=== PATIENT | female | born 1975 | race African-American/Black ===

== ENCOUNTER 2017-04-11 16:45 | Emergency (ER) | payer OTHER ==
[~2017-04-11] VITALS: Ht 152.4 cm; Wt 78.5 kg
[~2017-04-11 16:45] MED LIST: BEE550CA PO; LISI-334 PO; OMEG300C PO
[2017-04-11 17:00] VITALS: BP 127/80
[2017-04-11] MEDS ORDERED: ACETAMINOPHEN 325 MG TABLET PO ONE (18:30)
--- NOTE | 2017-04-11 18:37 | PHYS DOC ---
Past History Past Medical History: Hypertension Past Surgical History: Alcohol Use: None Drug Use: None Adult General Chief Complaint Chief Complaint: HEADACHE HPI HPI Patient is a 41 yo female with a hx of htn and presents with headache today that began at work about 5 hours prior to arrival. she denies worst of life or sudden onset. she tried to sleep and when she woke she was anxious with tingling to her hands, face and lips. those symptoms have resovled. pain is described as throbbing, not described as sharp or stabbing. no radiation. there is nausea without vomiting, photophobia without change in vision. no trauma, travel, or recent antibiotics. no focal neurological deficits. at bedside was worried about MS as the cause of her symptoms. we discussed that there was no need for CT scan given symptoms and her pe. no FMhx is known as patient is adopted. throbbing pain bitemporally is about a 6 of ten. no OTC meds were used. Review of Systems Review of Systems Constitutional: Denies fever or chills [] Eyes: Denies change in visual acuity, redness, or eye pain [] HENT: Denies nasal congestion or sore throat [] Respiratory: Denies cough or shortness of breath [] Cardiovascular: No additional information not addressed in HPI [] GI: Denies abdominal pain, nausea, vomiting, bloody stools or diarrhea [] : Denies dysuria or hematuria [] Musculoskeletal: Denies back pain or joint pain [] Integument: Denies rash or skin lesions [] Neurologic: presents with headache without, focal weakness or there has been some tingling and numbness to hands and face that have now resolved Endocrine: Denies polyuria or polydipsia [] Allergies Allergies Allergies Coded Allergies Type Severity Reaction Last Updated Verified No Known Drug Allergies 10/28/14 No Physical Exam Physical Exam noted htn Constitutional: Well developed, well nourished, no acute distress, non-toxic appearance. [] HENT: Normocephalic, atraumatic, bilateral external ears normal, oropharynx moist, no oral exudates, nose normal. [] Eyes: PERRLA, EOMI, conjunctiva normal, no discharge. [] Neck: Normal range of motion, no tenderness, supple, no stridor. [] Cardiovascular:Heart rate regular rhythm, no murmur [] Lungs & Thorax: Bilateral breath sounds clear to auscultation [] Abdomen: Bowel sounds normal, soft, no tenderness, no masses, no pulsatile masses. [] Skin: Warm, dry, no erythema, no rash. [] Back: No tenderness, no CVA tenderness. [] Extremities: No tenderness, no cyanosis, no clubbing, ROM intact, no edema. [] Neurologic: Alert and oriented X 3, normal motor function, normal sensory function, no focal deficits noted. [] Psychologic: Affect normal, judgement normal, mood normal. [] Current Patient Data Vital Signs Vital Signs Date Time Temp Pulse Resp B/P (MAP) Pulse Ox O2 Delivery O2 Flow Rate FiO2 04/11/17 17:00 99.0 64 18 100 Room Air EKG EKG [] Radiology/Procedures Radiology/Procedures [] Course & Med Decision Making Course & Med Decision Making Pertinent Labs and Imaging studies reviewed. (See chart for details) reviewed nurse's notes, vital signs, physical exam and history findings. Patient tells me that their symptoms given during CC are improved. We discussed differential diagnosis and need to follow-up. Also discussed that he cannot have a CAT scan at this time given duration of symptoms type of systems in severity I believe the CT scan would be an inappropriate tested at this time. I believe neurology follow-up. As an outpatient for continued evaluation for possible MS that's what they're worried about in the future. Impression; Tension headache subjective paresthesias now resolved Disposition: PCP follow-up in 24-48 hours if symptoms continue return really for any increase or change symptoms with any weakness or change paresthesias or change in vision or activity question concerns. Would advise up with her PCP for neurology evaluation if symptoms are persistent. [] Dragon Disclaimer Dragon Disclaimer This chart was dictated in whole or in part using Voice Recognition software in a busy, high-work load, and often noisy Emergency Department environment. It may contain unintended and wholly unrecognized errors or omissions. Departure Departure: Impression: Primary Impression: Tension headache Additional Impression: Paresthesias Disposition: HOME, SELF-CARE Condition: IMPROVED Referrals: KASEY DELGADO APRN (PCP) Patient Instructions: Tension Headache Additional Instructions: This return for any new or increasing symptoms, new paresthesias or weakness in any extremity problem or memory changes in vision or feel any questions or concerns. Also return if you've a fever greater than 102.2 with neck stiffness or headache with rash. Or call or return for any question of a change but have not care. Scripts Promethazine Hcl (PROMETHAZINE HCL) 25 Mg Tablet 1 TAB PO PRN Q6HRS for NAUSEA, #20 TAB Prov: ESTELITA PABLO MD 04/11/17 Naproxen (NAPROSYN) 500 Mg Tablet 1 TAB PO BID, #20 TAB 1 Refill Prov: ESTELITA PABLO MD 04/11/17 Problem Qualifiers ESTELITA PABLO MD Apr 11, 2017 18:37
[2017-04-11] MEDS ORDERED: diphenhydrAMINE 50 MG/ML VIAL IM ONE (18:45)
[2017-04-11] MEDS ORDERED: DEXAMETHASONE SOD PHOS 10 MG/ML VIAL PO ONE (18:45)
[2017-04-11] MEDS ORDERED: KETOROLAC 60 MG/2 ML VIAL. IM ONE (18:45)
[2017-04-11] MEDS ORDERED: PROM25TA10 PO (19:32)
[2017-04-11] MEDS ORDERED: NAPR500T PO (19:32)
== END 2017-04-11 19:39 | disposition home or self-care (01) ==
LOC: ER 16:45
DX: G44.209 Tension-type headache, unspecified, not intractable (principal); R20.2 Paresthesia of skin; I10 Essential (primary) hypertension
CPT/HCPCS: 96372; 99284; J1100; J1200; J1885